=== PATIENT | male | born 1980 ===

== ENCOUNTER 2023-01-29 09:03 | Outpatient (CLI) | payer OTHER ==
--- NOTE | 2023-01-29 16:37 | MRI Report ---
PROCEDURE: LUMBAR SPINE WO INDICATIONS: LOW BACK PAIN TECHNIQUE: Noncontrast sagittal T1 spin echo and T2 fast echo, sagittal STIR, axial T1 and T2 fast spin echo thr ough the lumbar spine. In cases with scoliosis, additional coronal T2 fast spin echo may be performe d. COMPARISON: None. FINDINGS: Image quality: Excellent. Alignment and Curvature: There is normal bony alignment. Bone Marrow: Marrow is of normal overall signal. Reactive endplate changes are present L5-S1. No ac jalen vertebral body compression fractures. Spinal Cord: Conus medullaris terminates at the L1 level. Visualized cord demonstrates normal signa l and size. Paraspinous Soft Tissues: No paravertebral masses. Discs: Severe desiccation is present L5-S1, moderate L3-4, L4-5. T12-L1: No disc bulge, spinal stenosis or foraminal narrowing. L1-L2: No disc bulge, spinal stenosis or foraminal narrowing. Mild epidural lipomatosis. L2-L3: Minimal disc bulge without spinal stenosis or foraminal narrowing. Epidural lipomatosis is present. L3-L4: Mild disc bulge with minimal canal narrowing. No foraminal narrowing. L4-L5: Mild disc bulge with superimposed posterior left paracentral protrusion. There is moderate c ompromise of the left lateral recess. L5-S1: Mild disc bulge with superimposed posterior protrusion. Mild spinal stenosis. Moderate bilat eral foraminal narrowing. IMPRESSION: Disc bulges with protrusions L4-5 and L5-S1 more notable at L4-5 causing compromise of the left later al recess. Reviewed by: Effie Jones MD on 01/29/2023 4:36 PM PST Approved by: Effie Jones MD on 01/29/2023 4:36 PM PST Station ID: [id number]
== END 2023-01-29 09:04 | disposition home or self-care (01) ==
LOC: DI 09:03
DX: M51.36 Other intervertebral disc degeneration, lumbar region (principal); M51.37 Other intervertebral disc degeneration, lumbosacral region